=== PATIENT | male | born 1980 | race Two or more races ===

== ENCOUNTER 2018-10-09 22:12 | Emergency (ER) | payer OTHER ==
[~2018-10-09] VITALS: Ht 172.7 cm; Wt 63.5 kg
[2018-10-09] MEDS ORDERED: DEMADEX10 MG (22:34)
[2018-10-09] MEDS ORDERED: TORADOL (22:34)
[2018-10-10] MEDS ORDERED: SKELAXIN800 MG PO (04:20)
[2018-10-10] MEDS ORDERED: DICLOFENAC SOD100 MG PO (04:20)
== END 2018-10-10 04:43 | disposition home or self-care (01) ==
LOC: ER 22:12
DX: M51.26 Other intervertebral disc displacement, lumbar region (principal); M54.5 Low back pain

== ENCOUNTER → 2018-10-09 | Emergency (ER) | payer OTHER ==
[~2018-10-09] VITALS: Ht 172.7 cm; Wt 63.5 kg
[~2018-10-09] MED LIST: DEMADEX10 MG; DICLOFENAC SOD100 MG PO; SKELAXIN800 MG PO; TORADOL
== END | disposition home or self-care (01) ==
LOC: ER 01:01
DX: M79.18 Myalgia, other site (principal)